=== PATIENT | female | born 1975 | race African-American/Black ===

== ENCOUNTER 2018-08-12 11:03 | Emergency (ER) | payer OTHER ==
[2018-08-12 11:36] VITALS: BP 120/88; PULSE 70; TEMP 98.2; BMI 24.7
[2018-08-12] MEDS ORDERED: SODIUM CHLORIDE 0.9% 500 ML INFUS.BAG IV ONE (11:59)
[2018-08-12] MEDS ORDERED: ACETAMINOPHEN 325 MG TABLET (FP) PO ONE (11:59)
--- NOTE | 2018-08-12 12:01 | PDOC ---
History of Present Illness - General Chief Complaint: Chest Pain Stated Complaint: CHEST PAIN Time Seen by Provider: 08/12/18 11:22 - History of Present Illness Initial Comments: The pt is a 43F w/ no reported PMH who presents for evaluation of 15 min of exertional chest pain that started while walking outside today, resolved with rest, O2, and fluids. She endorses intermittent cocaine use including last night. In the ED she reports mild residual chest discomfort but otherwise her symptoms have resolved. She denies fall or LOC. She denies recent illness, fevers/chills, current SOB, abdominal pain, N/V/C/D, dysuria, hematuria, or blood in her stool. 08/12/18 12:00 Past History - Past Medical History Allergies/Adverse Reactions: Allergies Allergy/AdvReac Type Severity Reaction Status Date / Time No Known Allergies Allergy Verified 01/04/14 18:47 Home Medications: Ambulatory Orders Ciprofloxacin [Cipro] 500 mg PO BID #14 tablet 01/04/14 Ibuprofen [Motrin] 800 mg PO TID #20 tablet 01/04/14 Oxycodone HCl/Acetaminophen [Percocet 5-325 mg Tablet] 1 - 2 tab PO Q6H #30 tablet 01/04/14 Quetiapine Fumarate [Seroquel -] 100 mg PO HS 01/04/14 Asthma: No Cancer: No Cardiac Disorders: No COPD: No Diabetes: No HTN: No Seizures: No Thyroid Disease: No - Reproductive History Spontaneous : 3 - Suicide/Smoking/Psychosocial Hx Smoking Status: No Smoking History: Current every day smoker Have you smoked in the past 12 months: Yes Number of Cigarettes Smoked Daily: 4 If you are a former smoker, when did you quit?: 2012 Information on smoking cessation initiated: No Hx Alcohol Use: No Drug/Substance Use Hx: No Hx Substance Use Treatment: No Review of Systems - Review of Systems Able to Perform ROS?: Yes Comments:: GENERAL/CONSTITUTIONAL: No fever or chills. No weakness HEAD, EYES, EARS, NOSE AND THROAT: No change in vision. No ear pain or discharge. No sore throat CARDIOVASCULAR: +chest tightness RESPIRATORY: Denies cough, hemoptysis GASTROINTESTINAL: No nausea, vomiting, diarrhea or constipation GENITOURINARY: No dysuria, frequency, or change in urination MUSCULOSKELETAL: No joint or muscle swelling or pain. No neck or back pain SKIN: No rash NEUROLOGIC: No headache, vertigo, loss of consciousness, or change in strength/ sensation ENDOCRINE: No increased thirst. No abnormal weight change HEMATOLOGIC/LYMPHATIC: No anemia, easy bleeding, or history of blood clots ALLERGIC/IMMUNOLOGIC: No hives or skin allergy 08/12/18 13:41 Is the patient limited Uzbek proficient: No *Physical Exam - Vital Signs Last Vital Signs Temp Pulse Resp BP Pulse Ox 98.2 F 70 18 120/88 100 08/12/18 11:28 08/12/18 11:26 08/12/18 11:26 08/12/18 11:26 08/12/18 11:26 - Physical Exam Comments: GENERAL: Awake, alert, and oriented to person/place/time, in no acute distress HEAD: No signs of trauma, normocephalic, atraumatic EYES: PERRLA, EOMI, sclera anicteric, conjunctiva clear ENT: Hearing grossly normal, nares patent, oropharynx clear without exudates. Moist mucosa LUNGS: No distress, speaks in full sentences, clear to auscultation bilaterally HEART: Regular rate and rhythm, normal S1 and S2, no murmurs appreciated, peripheral pulses normal and equal bilaterally ABDOMEN: Soft, nontender, normoactive bowel sounds. No guarding, no rebound EXTREMITIES: Normal inspection, Normal range of motion, no edema. No clubbing or cyanosis NEUROLOGICAL: Cranial nerves II through XII grossly intact. Normal speech, normal gait, no focal sensorimotor deficits SKIN: Warm, Dry 08/12/18 13:42 ED Treatment Course - LABORATORY CBC & Chemistry Diagram: 08/12/18 12:07 08/12/18 12:07 - RADIOLOGY Radiology Studies Ordered: Category Date Time Status CHEST X-RAY PORTABLE* [RAD] Stat Radiology 08/12/18 11:59 Ordered Medical Decision Making - Medical Decision Making The pt is a 43F w/ a history of cocaine use who presents for evaluation of exertional chest pain with associated SOB, diaphoresis, and lightheadedness which has since resolved ED Course Labs sent ECG CXR IVF Tylenol 08/12/18 13:42 Lytes wnl Trop I neg No anemia No leukocytosis LFTs unremarkable No EDE ECG w/ NSR HR 67; QTc 454; No evidence of acute ischemia Plan for D/C w/ PCP f/u Discharge instructions, drug cessation counseling, and return precautions given Pt in agreement and verbalized understanding Dispo: home 08/12/18 13:44 *DC/Admit/Observation/Transfer Diagnosis at time of Disposition: Cocaine use, Lightheadedness Chest pain Qualifiers: Chest pain type: unspecified Qualified Code(s): R07.9 - Chest pain, unspecified - Discharge Dispostion Disposition: HOME Condition at time of disposition: Improved Decision to Admit order: No - Referrals Referrals: Baljit Jha [Primary Care Provider] - Juvenal Blanco MD [Staff Physician] - - Patient Instructions Printed Discharge Instructions: DI for Atypical Chest Pain Additional Instructions: You were seen in the Emergency Department for evaluation of chest pain. Your labs, imaging, and ECG were unremarkable. Review the handout provided at discharge. Follow up your primary care provider and Cardiology referral provided within a week. Return to the Emergency Department if you develop fevers /chills, chest pain, trouble breathing, lightheadedness, if you pass out, worsening symptoms, or any new/concerning symptoms. - Post Discharge Activity
[2018-08-12] MEDS ORDERED: ACETAMINOPHEN 325 MG TABLET (FP) ONE (12:11)
[2018-08-12 12:17] LABS: BASO % 0.6 % (0-2.0); EOS % 0.3 % (0-4.5); HEMATOCRIT 33.1 % (32.4-45.2); LYMPH % 9.4 % (8-40); MCH 31.8 pg (25.7-33.7); MCHC 33.4 g/dl (32.0-36.0); MEAN CELL VOLUME 95.2 fl (80-96); MEAN PLT VOLUME 9.1 fl (7.5-11.1); MONO % 4.7 % (3.8-10.2); RBC 3.47 M/mm3 (3.60-5.2); RDW 13.5 % (11.6-15.6); WHITE BLOOD COUNT 7.7 K/mm3 (4.0-10.0)
[2018-08-12 12:27] LABS: PLATELET COUNT 210 K/MM3 (134-434)
[2018-08-12 12:40] LABS: ALBUMIN 3.8 g/dl (3.4-5.0); ALK PHOS 39 U/L (45-117); ANION GAP 8 MMOL/L (8-16); BILIRUBIN,TOTAL 0.3 mg/dL (0.2-1); BLOOD UREA NITROGEN 8.7 mg/dL (7-18); CALCIUM 8.5 mg/dL (8.5-10.1); CHLORIDE 110 mmol/L (98-107); CO2 25 mmol/L (21-32); CREATININE 0.9 mg/dL (0.55-1.3); GLUCOSE,RANDOM 83 mg/dL (74-106); POTASSIUM 3.7 mmol/L (3.5-5.1); SGOT/AST 26 U/L (15-37); SGPT/ALT 23 U/L (13-61); SODIUM 143 mmol/L (136-145); TOT PROT 7.2 g/dl (6.4-8.2)
--- NOTE | 2018-08-12 13:39 | PDOC ---
Documentation entered by Yusuf Campos SCRIBE, acting as scribe for Etelvina Downing MD. Etelvina Downing MD: This documentation has been prepared by the Andres keen Daniel, SCRIBE, under my direction and personally reviewed by me in its entirety. I confirm that the documentation accurately reflects all work, treatment, procedures, and medical decision making performed by me. Attending Attestation - Resident Resident Name: AngieTrey - ED Attending Attestation I have performed the following: I have examined & evaluated the patient, The case was reviewed & discussed with the resident, I agree w/resident's findings & plan - HPI HPI: 08/12/18 12:30 The patient is a 43 year old female with a past medical history of anxiety, depression, PTSD, and alcohol and cocaine abuse here today for evaluation of chest tightness. The patient reports that she had a 15 minute episode of chest tightness with associated shortness of breath, diaphoresis, and lightheadedness while walking outdoors in the heat. She states that her symptoms resolved with rest and fluids from EMS helped. she admits to not eating this morning and feeling dehydrated. she then went to a diner and ate some food, which made her feel improved. She denies any previous episodes of these symptoms and states that she only has some mild chest discomfort now. +smoker, admits to smoking cocaine last night. Patient denies headache. Denies fever, chills. Denies nausea, vomiting, diarrhea , abdominal pain. Allergies: NKA PCP: Baljit Jha 08/12/18 14:06 08/12/18 14:08 - Physicial Exam PE: 08/12/18 13:37 Agree with the resident's HPI and PE as documented in the electronic medical record. NAD, well appearing, EOMI, PERRL, MMM, nl conjunctiva, anicteric; neck supple. lungs clear, RRR, abdomen soft nontender. Back nontender. ULLOA x4, no focal neuro deficits. No peripheral edema. normal color for ethnicity, WWP. - Medical Decision Making 08/12/18 13:37 See HPI for details. Prior notes reviewed, including admissions, discharges and consultations. Vital signs reviewed, wnl. DDx includes ACS, unstable vs stable angina, coronary vasospasm, NSTEMI, arrhythmia, costochondritis, GERD, pleurisy, anxiety, esophageal spasm, pneumonia, pericarditis/myocarditis, electrolyte/metabolic derangements. Low suspicion for pulmonary embolism or dissection. laboratory results and imaging reviewed, basic labs and lytes wnl, LFTs normal. neg preg test UA_neg CXR_no acute pathology Cardiac panel_negative x1. EKG normal sinus rhythm at 67 bpm, no interval abnormalities, narrow QRS, ST and T wave segments and morphology normal. Nonspecific T wave abnormalities ED course HEART score 2 which denotes Low risk and probability for ACS, less than 1% risk for MACE at 4-6 wks no active cp, sob or sx, feels improved, doubt cardiac etiology with history/ clinical exam PERC neg, so doubt PE. advised smoking/cocaine cessation Pt to be discharged in stable condition. Patient and family made aware of clinical impression, treatment recommendations and disposition plan, return precautions discussed (including but not limited to new or persistent/worsening symptoms, pain, fevers, or signs of infection, chest pain, respiratory distress , inability to tolerate oral intake, dehydration, syncope, or neurologic changes ). Follow up with PMD as recommended, follow up information provided, take medications as instructed for duration of time. continue with supportive care, avoid triggers and precipitants. All questions answered to patient's satisfaction and expressed understanding and comfort with this. At the time of discharge, the patient is alert, clinically improved, tolerating po and verbalizes understanding of instructions, satisfied with the care received and felt comfortable with the plan. Patient does not suffer from an acute life- threatening medical condition at this time and is safe for outpatient follow- up. 08/12/18 14:09 Heart Score/ECG Review - History History: Slightly suspicious - Electrocardiogram EKG: Non specific repolarization disturbance - Age Age: </= 45 - Risk Factors Risk Factors Heart Score: Yes Smoking History Based on the list above the patient has:: 1-2 risk factors - Troponin Troponin: </= normal limit - Score Heart Score - Total: 2 #1 ECG reviewed & interpreted by me at: 11:15 General ECG Interpretation: Sinus Rhythm, Normal Rate, Normal Intervals, No acute ischemic changes Compared to previous ECG there are: Previous ECG unavail 08/12/18 14:08 EKG normal sinus rhythm at 67 bpm, no interval abnormalities, narrow QRS, ST and T wave segments and morphology normal. Nonspecific T wave abnormalities
--- NOTE | 2018-08-14 00:26 | EKG ---
Test Reason : Blood Pressure : / mmHG Vent. Rate : 067 BPM Atrial Rate : 067 BPM P-R Int : 140 ms QRS Dur : 080 ms QT Int : 430 ms P-R-T Axes : 058 008 048 degrees QTc Int : 454 ms NORMAL SINUS RHYTHM NORMAL ECG NO PREVIOUS ECGS AVAILABLE Confirmed by MD Victoria, Mynor ([id number]) on 08/14/2018 12:26:29 AM Referred By: Confirmed By:Mynor Kessler MD
== END 2018-08-12 14:10 | disposition home or self-care (01) ==
LOC: JER 11:03
PROC: 3E0337Z Introduction of Electrolytic and Water Balance Substance into Peripheral Vein, Percutaneous Approach (ICD-10-PCS; principal; 2018-08-12)
DX: R07.9 Chest pain, unspecified (principal); F14.90 Cocaine use, unspecified, uncomplicated
CPT/HCPCS: 36415; 71045-TC-FY; 80053; 84484; 84703; 85025; 93005; 93010; 99282-25

== ENCOUNTER 2018-11-29 11:32 | Emergency (ER) | payer OTHER ==
[2018-11-29 11:45] VITALS: BP 121/76; PULSE 65; TEMP 98.5; BMI 26.6
[2018-11-29] MEDS ORDERED: hydrOXYzine PAMOATE 50 MG CAPSULE (FP) PO ONE (12:19)
[2018-11-29] MEDS ORDERED: SODIUM CHLORIDE 1,000 ML IV STA (12:19)
[2018-11-29] MEDS ORDERED: METOCLOPRAMIDE HCL INJECTION 10 MG/2 ML VIAL IVPUSH ONE (12:19)
[2018-11-29] MEDS ORDERED: morphine SULFATE 4 MG/ML VIAL IVPUSH ONE (12:19)
[2018-11-29] MEDS ORDERED: METOCLOPRAMIDE HCL INJECTION 10 MG/2 ML VIAL ONE (13:00)
[2018-11-29] MEDS ORDERED: morphine SULFATE 4 MG/ML VIAL ONE (13:04)
--- NOTE | 2018-11-29 13:25 | PDOC ---
Documentation entered by Annika Yanez SCRIBE, acting as scribe for Lissett Garcia MD. Lissett Garcia MD: This documentation has been prepared by the Renata keen Adrianna, SCRIBE, under my direction and personally reviewed by me in its entirety. I confirm that the documentation accurately reflects all work, treatment, procedures, and medical decision making performed by me. History of Present Illness - General Chief Complaint: Psychiatric Stated Complaint: CHEST PAIN/DIZZY Time Seen by Provider: 11/29/18 11:55 History Source: Patient Exam Limitations: No Limitations - History of Present Illness Initial Comments: The patient is a 43 year old female, with a significant PMH of anxiety, depression, PTSD, and alcohol and cocaine abuse, here today for evaluation of headache since last night, and chest palpitations this morning. Patient notes that last night she snorted cocaine (has not used in over a month), and is unsure if it was laced or not. She endorses a slight headache that developed last night but has become significantly worse upon waking up this morning. Patient notes her headache is most prominent at the temples, and she notes she feels as if her head is going to burst. Patient also endorses chest palpitations, noting that her heart feels like its beating too fast and she cant breathe.Patient notes she had some alcohol and marijuana today to help alleviate her symptoms but it did not help. Patient additionally tried extra strength tylenol, water, and rest without any changes. She does note that she did not take her psych medications last night. Allergies: NKA, NKDA Surgical History: None reported Social History: Cocaine, EtO,H marijuana, and tobacco use. PCP: Baljit Jha Past History - Past Medical History Allergies/Adverse Reactions: Allergies Allergy/AdvReac Type Severity Reaction Status Date / Time No Known Allergies Allergy Verified 11/29/18 11:45 Home Medications: Ambulatory Orders Ciprofloxacin [Cipro] 500 mg PO BID #14 tablet 01/04/14 Ibuprofen [Motrin] 800 mg PO TID #20 tablet 01/04/14 Oxycodone HCl/Acetaminophen [Percocet 5-325 mg Tablet] 1 - 2 tab PO Q6H #30 tablet 01/04/14 Quetiapine Fumarate [Seroquel -] 100 mg PO HS 01/04/14 Butalb/Acetaminophen/Caffeine [Fioricet 50-300-40 mg Capsule] 1 each PO TID PRN #12 capsule 11/29/18 Nitrofurantoin Monohyd/M-Cryst [Macrobid -] 100 mg PO BID #14 capsule 11/29/18 Asthma: No Cancer: No Cardiac Disorders: No COPD: No Diabetes: No HTN: No Psychiatric Problems: (ANXIETY) Seizures: No Thyroid Disease: No Other medical history: COACAINE/ETOH ABUSE - Reproductive History Spontaneous : 3 - Psycho Social/Smoking Cessation Hx Smoking Status: No Smoking History: Current every day smoker Have you smoked in the past 12 months: Yes Number of Cigarettes Smoked Daily: 4 If you are a former smoker, when did you quit?: 1st 2012 Information on smoking cessation initiated: No Hx Alcohol Use: No Drug/Substance Use Hx: No Hx Substance Use Treatment: No Review of Systems - Review of Systems Comments:: GENERAL/CONSTITUTIONAL: No fever or chills. No weakness. HEAD, EYES, EARS, NOSE AND THROAT: No change in vision. No ear pain or discharge. No sore throat. CARDIOVASCULAR: +Chest palpitations. +She cant breathe. RESPIRATORY: No cough, wheezing, or hemoptysis. GASTROINTESTINAL: No nausea, vomiting, diarrhea or constipation. GENITOURINARY: No dysuria, frequency, or change in urination. MUSCULOSKELETAL: No joint or muscle swelling or pain. No neck or back pain. SKIN: No rash NEUROLOGIC: +Headache. No vertigo, loss of consciousness, or change in strength/ sensation. ENDOCRINE: No increased thirst. No abnormal weight change. HEMATOLOGIC/LYMPHATIC: No anemia, easy bleeding, or history of blood clots. ALLERGIC/IMMUNOLOGIC: No hives or skin allergy. *Physical Exam - Vital Signs Last Vital Signs Temp Pulse Resp BP Pulse Ox 98.5 F 65 121/76 11/29/18 11:36 11/29/18 11:36 11/29/18 11:36 - Physical Exam Comments: GENERAL: AAOx3. TAnxious. Tearful. Answering questions appropriately. HEAD: Normal with no signs of trauma, no nuchal rigidity. EYES: PERRLA, EOMI, sclera anicteric, conjunctiva clear. ENT: Ears normal, nares patent, oropharynx clear without exudates. Moist mucous membranes. NECK: Normal range of motion, supple without lymphadenopathy LUNGS: Breath sounds equal, clear to auscultation bilaterally. No wheezes, and no crackles. HEART: +Tachycardic. Regular rhythm, normal S1 and S2 without murmur, rub or gallop. ABDOMEN: Soft, nontender, normoactive bowel sounds. No guarding, no rebound. No masses palpable. EXTREMITIES: Normal range of motion, no edema. NEUROLOGICAL: Cranial nerves II through XII grossly intact. Normal speech. No focal neurological deficits. MUSCULOSKELETAL: Back nontender to palpation SKIN: Warm, Dry, normal turgor, no rashes or lesions noted. 11/29/18 15:01 ED Treatment Course - LABORATORY CBC & Chemistry Diagram: 11/29/18 12:40 11/29/18 12:40 - RADIOLOGY Radiology Studies Ordered: Category Date Time Status HEAD CT WITHOUT CONTRAST [CT] Stat CT Scan 11/29/18 12:19 Ordered Radiograph Interpretation: EXAM#: TYPE/EXAM: RESULT: [id number] CT/HEAD CT WITHOUT CONTRAST History of subdural hemorrhage. Now with headache IMPRESSION: No acute intracranial pathology is identified Deformity of the nasal bones compatible with a minimally depressed likely chronic fracture since no overlying soft tissue swelling is present. Reported By: Faviola Chung MD 11/29/18 14:20 - Medications Given in the ED: ED Medications Discontinued Medications Generic Name Dose Route Start Last Admin Trade Name Freq PRN Reason Stop Dose Admin Sodium Chloride 1,000 mls @ 1,000 mls/hr 11/29/18 12:19 11/29/18 13:02 Normal Saline - IV 11/29/18 13:18 1,000 mls/hr ASDIR STA Administration Metoclopramide HCl 10 mg 11/29/18 12:19 11/29/18 13:02 Reglan Injection - IVPUSH 11/29/18 12:20 10 mg ONCE ONE Administration Morphine Sulfate 4 mg 11/29/18 12:19 11/29/18 13:11 Morphine Sulfate IVPUSH 11/29/18 12:20 4 mg ONCE ONE Administration Medical Decision Making - Medical Decision Making 11/29/18 13:20 Ms. Alvarez is a 43-year-old female presenting to the emergency department with a complaint of headache and anxiety. Patient has a history of polysubstance abuse. Yesterday used cocaine. Subsequent to this began noting a mild headache which progressively worsened. This morning she took an extra strength Tylenol which did not help. She also drinks alcohol as well as used marijuana. None of this improves her headache. She now feels very jittery and anxious internally. She has a history of anxiety for which she takes Lexapro and Seroquel. She did not take her Seroquel last night. She denies head trauma currently although has a prior history of multiple traumatic injuries with resulting fracture of the orbital floor on the right and laceration of the forehead and subdural hematoma actually. She denies fevers or chills. She denies recent travel EKG- Twelve-lead EKG was performed and reviewed by me. There is normal sinus rhythm with a normal rate. The axis is normal. The intervals are normal. There are no ST elevation or depression. non specific T wave abnormalities. QTc: 440 MS Impression: Normal twelve-lead EKG We will do labs We will do EKG We will give morphine as well as Reglan for headache open (patient already took Tylenol, will hold on giving Toradol until I can see head CT given patient's prior history of subdural hematoma) We will also give Vistaril for patient's anxiety. 11/29/18 13:52 Laboratory Tests 11/29/18 11/29/18 11/29/18 12:40 12:40 12:40 WBC 6.5 Hgb 11.3 Hct 34.2 Plt Count 230 Urine Nitrite Positive H Ur Leukocyte Esterase 3+ H Urine WBC (Auto) 59 Urine RBC (Auto) 4 Urine Bacteria (Auto) 1551.8 Urine HCG, Qual Negative 11/29/18 14:16 Laboratory Tests 11/29/18 11/29/18 12:40 12:40 BUN 11.1 Creatinine 0.7 Creatine Kinase 1187 H Troponin I < 0.02 11/29/18 15:05 CT no acute findings Pt states headache has improved but still present Will give Fiorecet and Motrin IV Will re assess Pt states she feels much better and would like to go home Pt asked to return for any recurrence of symptoms or any other concerns or complaints I discussed the physical exam findings, ancillary test results and final diagnoses with the patient. I answered all of the patient's questions. The patient was satisfied with the care received and felt comfortable with the discharge plan and treatment plan. The patient will call their primary care physician within 24 hours to arrange follow-up and will return to the Emergency Department with any new, persistent or worsening symptoms. Discharge - Discharge Information Problems reviewed: Yes Clinical Impression/Diagnosis: Cocaine use, Cannabis use disorder, mild, abuse Headache Qualifiers: Headache type: unspecified Headache chronicity pattern: acute headache Intractability: not intractable Qualified Code(s): R51 - Headache UTI (urinary tract infection) Qualifiers: Urinary tract infection type: site unspecified Hematuria presence: without hematuria Qualified Code(s): N39.0 - Urinary tract infection, site not specified Condition: Stable Disposition: HOME - Admission No - Additional Discharge Information Prescriptions: Butalb/Acetaminophen/Caffeine [Fioricet 50-300-40 mg Capsule] 1 each PO TID PRN #12 capsule PRN Reason: severe headache Nitrofurantoin Monohyd/M-Cryst [Macrobid -] 100 mg PO BID #14 capsule Prescription Drug Monitoring Program (I-STOP) results: I-STOP not reviewed - Follow up/Referral Referrals: Baljit Jha [Primary Care Provider] - - Patient Discharge Instructions Patient Printed Discharge Instructions: Migraine Headaches (Alternative Therapy ), Tension Headache, DI for Urinary Tract Infection (UTI), DI for Headache Additional Instructions: Ms Alvarez Thank you for coming in to the ER today Please be sure to take medications as prescribed For headaches: please take motrin or tylenol before the headache becomes severe If the headache is moderate, please use Excedrine If headache is severe please use Fiorecet (prescribed for you) UTI: please take antibiotics as prescribed Return to the emergency department immediately with ANY new, persistent or worsening symptoms. Continue any medications as previously prescribed by your physician. You should follow up with your primary doctor as soon as possible regarding today's emergency department visit. Please make sure your doctor reviews the results of your emergency evaluation. Thank you for coming to the Emergency Department today for your care. It was a pleasure to see you today. Please note that your evaluation is INCOMPLETE until you follow-up with your doctor. - Post Discharge Activity
[2018-11-29 13:28] LABS: BASO % 0.8 % (0-2.0); EOS % 0.6 % (0-4.5); HEMATOCRIT 34.2 % (32.4-45.2); HEMOGLOBIN 11.3 GM/dL (10.7-15.3); LYMPH % 27.3 % (8-40); MCH 30.7 pg (25.7-33.7); MCHC 33.1 g/dl (32.0-36.0); MEAN CELL VOLUME 92.7 fl (80-96); MEAN PLT VOLUME 10.9 fl (7.5-11.1); NEUT % 64.3 % (42.8-82.8); PLATELET COUNT 230 K/MM3 (134-434); RBC 3.69 M/mm3 (3.60-5.2); RDW 13.6 % (11.6-15.6); WHITE BLOOD COUNT 6.5 K/mm3 (4.0-10.0)
[2018-11-29 13:32] LABS: EPI CELLS 5.9 /HPF (0-5/HPF); HYALINE CASTS 4 /lpf (0-8); URINE APPEARANCE CLOUDY; URINE BACTERIA 1551.8 /hpf (NEGATIVE); URINE BILIRUBIN NEGATIVE (NEGATIVE); URINE COLOR YELLOW; URINE GLUCOSE (UA) NEGATIVE (NEGATIVE); URINE KETONE NEGATIVE (NEGATIVE); URINE LEUK ESTERASE 3+ (NEGATIVE); URINE NITRITE POSITIVE (NEGATIVE); URINE PROTEIN NEGATIVE (NEGATIVE); URINE RBC 4 /hpf (0-4); URINE UROBILINOGEN 0.2 mg/dL (0.2-1.0); URINE WBC 59 /hpf (0-5)
[2018-11-29 13:59] LABS: ALBUMIN 4.1 g/dl (3.4-5.0); BILIRUBIN,TOTAL 0.3 mg/dL (0.2-1); BLOOD UREA NITROGEN 11.1 mg/dL (7-18); CALCIUM 8.7 mg/dL (8.5-10.1); CREATININE 0.7 mg/dL (0.55-1.3); POTASSIUM 4.1 mmol/L (3.5-5.1); TOT PROT 7.5 g/dl (6.4-8.2)
[2018-11-29 14:11] LABS: METHADONE, UR NEGATIVE ng/ml (CUTOFF=300); OPIATES, URI NEGATIVE ng/ml (CUTOFF=300); PHENCYCLIDINE,URINE NEGATIVE ng/ml (CUTOFF=25); URINE AMPHETAMINES NEGATIVE ng/ml (CUTOFF=500); URINE BARBITURATES NEGATIVE ng/ml (CUTOFF=200); URINE BENZODIAZEPINES NEGATIVE ng/ml (CUTOFF=200)
[2018-11-29 14:17] LABS: COCAINE, UR POSITIVE ng/ml (CUTOFF=300)
--- NOTE | 2018-11-29 14:17 | EKG ---
Test Reason : Blood Pressure : / mmHG Vent. Rate : 090 BPM Atrial Rate : 090 BPM P-R Int : 144 ms QRS Dur : 084 ms QT Int : 360 ms P-R-T Axes : 054 -04 039 degrees QTc Int : 440 ms NORMAL SINUS RHYTHM NONSPECIFIC T WAVE ABNORMALITY ABNORMAL ECG WHEN COMPARED WITH ECG OF 12-AUG-2018 11:13, NONSPECIFIC T WAVE ABNORMALITY NOW EVIDENT IN LATERAL LEADS Confirmed by STORMY ARREOLA, FABIO ([id number]) on 11/29/2018 2:16:33 PM Referred By: Confirmed By:FABIO BURROWS MD
[2018-11-29] MEDS ORDERED: ACETAMINOPHEN/CAFFEINE/BUTALBITAL 1 TAB PO ONE (14:59)
[2018-11-29] MEDS ORDERED: IBUPROFEN 800 MG/8 ML IJ IVPB ONE ×2 (15:03→15:10)
[2018-11-29] MEDS ORDERED: ACETAMINOPHEN/CAFFEINE/BUTALBITAL 1 TAB ONE (15:09)
[2018-11-29] MEDS ORDERED: NITROFURANTOIN MACROCRYSTAL 50 MG CAPSULE (FP) ONE (15:10)
[2018-11-29] MEDS ORDERED: NITROFURANTOIN MACROCRYSTAL 50 MG CAPSULE (FP) PO SCH (15:15)
== END 2018-11-29 16:09 | disposition home or self-care (01) ==
LOC: JER 11:32
PROC: 3E033GC Introduction of Other Therapeutic Substance into Peripheral Vein, Percutaneous Approach (ICD-10-PCS; principal; 2018-11-29)
PROC: 3E033NZ Introduction of Analgesics, Hypnotics, Sedatives into Peripheral Vein, Percutaneous Approach (ICD-10-PCS; 2018-11-29)
PROC: 3E0337Z Introduction of Electrolytic and Water Balance Substance into Peripheral Vein, Percutaneous Approach (ICD-10-PCS; 2018-11-29)
DX: R51 Headache (principal); N39.0 Urinary tract infection, site not specified; F12.10 Cannabis abuse, uncomplicated; F14.90 Cocaine use, unspecified, uncomplicated
CPT/HCPCS: 36415; 70450-TC; 80053; 80307; 81003; 82550; 82553; 84484; 84703; 85025; 87086; 87186; 93005; 93010; 96361; 96374; 96375; 99285-25; J7030

== ENCOUNTER 2022-09-26 12:25 | Emergency (ER) | payer OTHER ==
[2022-09-26 12:38] VITALS: BP 153/105; PULSE 86; RESP 18; TEMP 98.5; BMI 25.1
[2022-09-26] MEDS ORDERED: IBUPROFEN 600 MG TABLET (FP) PO ONE ×2 (12:55→13:02)
== END 2022-09-26 15:10 | disposition left against medical advice (07) ==
LOC: JERFT 12:25
DX: M79.632 Pain in left forearm (principal); I10 Essential (primary) hypertension; X58.XXXA Exposure to other specified factors, initial encounter; Y93.89 Activity, other specified; Y92.9 Unspecified place or not applicable
CPT/HCPCS: 73090-TC-LT-FY; 73110-TC-RT-FY; 99283-25

== ENCOUNTER 2023-03-31 11:53 | Emergency (ER) | payer OTHER ==
[2023-03-31 12:03] VITALS: BP 152/92; PULSE 106; RESP 20; TEMP 98.7; BMI 23.6
[2023-03-31] MEDS ORDERED: morphine SULFATE 4 MG/ML VIAL ONE ×3 (13:02→18:29)
[2023-03-31] MEDS: morphine CARPU-JECT 2 MG/1 ML DISP.SYRIN IM ONE (13:07)
[2023-03-31] MEDS ORDERED: PIPERACILLIN/TAZOB 4.5 GM 4.5 GM/100 ML BAG IVPB ONE (15:47)
[2023-03-31] MEDS: PIPERACILLIN/TAZOB 4.5 GM 4.5 GM in DEXTROSE 5%-WATER 100 ML IVPB ONE (16:29)
[2023-03-31] MEDS: morphine CARPU-JECT 4 MG/1 ML DISP.SYRIN IVPUSH ONE ×2 (16:29→18:34)
[2023-03-31] MEDS ORDERED: HYDROCHLOROTHIAZIDE 25 MG TABLET (FP) ONE (16:39)
[2023-03-31] MEDS: HYDROCHLOROTHIAZIDE 25 MG TABLET (FP) PO ONE (16:45)
[2023-03-31] MEDS: SODIUM CHLORIDE 1,000 ML IV SCH (16:54)
== END 2023-03-31 18:47 | disposition home or self-care (01) ==
LOC: JER 11:53
PROC: 0HQ1XZZ Repair Face Skin, External Approach (ICD-10-PCS; principal; 2023-03-31)
PROC: 3E033GC Introduction of Other Therapeutic Substance into Peripheral Vein, Percutaneous Approach (ICD-10-PCS; 2023-03-31)
PROC: 3E033GC Introduction of Other Therapeutic Substance into Peripheral Vein, Percutaneous Approach (ICD-10-PCS; 2023-03-31)
PROC: 3E033GC Introduction of Other Therapeutic Substance into Peripheral Vein, Percutaneous Approach (ICD-10-PCS; 2023-03-31)
PROC: 3E023GC Introduction of Other Therapeutic Substance into Muscle, Percutaneous Approach (ICD-10-PCS; 2023-03-31)
DX: S02.92XA Unspecified fracture of facial bones, initial encounter for closed fracture (principal); S01.511A Laceration without foreign body of lip, initial encounter; Y04.8XXA Assault by other bodily force, initial encounter; Z20.822 Contact with and (suspected) exposure to COVID-19
CPT/HCPCS: 70450-TC; 70486-TC; 72125-TC; 87040; 87635; 99284-25

== ENCOUNTER 2023-09-14 15:27 | Emergency (ER) | payer OTHER ==
[2023-09-14 16:07] VITALS: BP 155/67; PULSE 76; RESP 18; TEMP 98.2; BMI 24.2
[2023-09-14] MEDS ORDERED: AMOX TR/POT CLAV 875MG/125MG TABLETS (FP) PO ONE (17:37)
[2023-09-14] MEDS ORDERED: oxyCODONE HCL 5 MG TABLET PO ONE (17:38)
[2023-09-14] MEDS ORDERED: AMOX TR/POT CLAV 875MG/125MG TABLETS (FP) ONE (17:53)
[2023-09-14] MEDS ORDERED: oxyCODONE HCL 5 MG TABLET ONE (17:53)
== END 2023-09-14 17:56 | disposition home or self-care (01) ==
LOC: JER 15:27
DX: S80.02XA Contusion of left knee, initial encounter (principal); S00.511A Abrasion of lip, initial encounter; L01.00 Impetigo, unspecified; V18.0XXA Pedal cycle driver injured in noncollision transport accident in nontraffic accident, initial encounter
CPT/HCPCS: 99283-25